=== PATIENT | female | born 1975 ===

== ENCOUNTER 2018-05-28 17:14 | Emergency (ER) | payer BC ==
--- NOTE | 2018-05-28 17:43 | C.PDOC ---
History Of Present Illness 42 y/o F p/w L hand pain s/p fall 7 hours ago. States tripped on elevated sidewalk and braced fall with L hand. Now complains of pain in the palm which is sharp, worse with movement or palpation. Denies headstrike, LOC, nausea, vomiting, numbness or weakness. Time Seen by Provider: 05/28/18 17:24 Chief Complaint (Nursing): Upper Extremity Problem/Injury Past Medical History Vital Signs: Last Vital Signs Temp 98.7 F 05/28/18 17:19 Pulse 76 05/28/18 17:19 Resp 18 05/28/18 17:19 BP 115/81 05/28/18 17:19 Pulse Ox 97 05/28/18 17:19 Family History: States: No Known Family Hx Review Of Systems Except As Marked, All Systems Reviewed And Found Negative. Constitutional: Negative for: Fever Cardiovascular: Negative for: Chest Pain Physical Exam - Physical Exam Additional Physical Exam Comments: Gen: NAD Head: NC/AT Neck: No midline tenderness CV: Radila pulse 2+ MSK: Tenderness to proximal hand, no snuffbox tenderness Skin: Abrasion to palm Neuro: Moves all digits ED Course And Treatment O2 Sat by Pulse Oximetry: 97 Medical Decision Making Medical Decision Making: Patient declined pain medication. XR hand and wrist negative for fracture or dislocation. Recommended DAILY, elevation, ice, ibuprofen. Disposition - Disposition Referrals: Drew Lazo MD [Staff Provider] - Disposition: HOME/ ROUTINE Disposition Time: 18:28 Condition: STABLE Instructions: Common Wrist Injuries Forms: [facility] ([place]ian) - Clinical Impression Clinical Impression: Wrist injury
--- NOTE | 2018-05-28 18:05 | RAD ---
PROCEDURE: Left wrist radiographs Left hand radiographs HISTORY: fall, hand pain COMPARISON: None available. FINDINGS: BONES: No acute displaced fracture. JOINTS: No dislocation. SOFT TISSUES: Mild soft tissue swelling. The patient's ring obscures evaluation of the 4th proximal phalanx. OTHER FINDINGS: None. IMPRESSION: Mild soft tissue swelling. The patient's ring obscures evaluation of the 4th proximal phalanx. No acute displaced or dislocation identified. If symptoms persist, or if there is continued clinical concern, x-ray follow-up in 7-10 days should be considered.
[2018-05-28 18:42] VITALS: BP 118/80; PULSE 73; RESP 16; TEMP 97.7; O2SAT 98
== END 2018-05-28 18:41 | disposition home or self-care (01) ==
LOC: C.ER 17:14 → MERGE 17:14 → C.ER 18:41
DX: S69.92XA Unspecified injury of left wrist, hand and finger(s), initial encounter (principal); W01.0XXA Fall on same level from slipping, tripping and stumbling without subsequent striking against object, initial encounter; Y92.480 Sidewalk as the place of occurrence of the external cause